=== PATIENT | male | born 1965 | race Caucasian/White ===

== ENCOUNTER 2016-06-13 10:27 | Inpatient (IN) | payer BC, MEDICAID ==
[~2016-06-13] VITALS: Ht 160 cm; Wt 74.8 kg
[2016-06-13] MEDS ORDERED: KETOROLAC TROMETHAMINE INJ 30 MG/ML VIAL IM ONE (11:00)
[2016-06-13] MEDS ORDERED: KETOROLAC TROMETHAMINE INJ 30 MG/ML VIAL ONE (11:01)
--- NOTE | 2016-06-13 11:05 | NUR ---
PT BIB SELF C/O LLQ ABD PAIN X1 WK WITH N/V EARLIER IN THE WEEK BUT NOW DENIES. RESP EVEN UNLABORED. SKIN WARM NONDIAPHORETIC. REPORTS CONSTIPATION AND FEELING OF BLOATING/GAS. AMBULATORY WITH STEADY GAIT. AFEBRILE. IN ER BED 10.
[2016-06-13 11:37] LABS: BASOPHILS # (AUTO) 0.6 /CMM (0.0-0.2); BASOPHILS % (AUTO) 3.7 % (0.0-2.0); EOSINOPHILS # (AUTO) 0.2 /CMM (0.0-0.7); EOSINOPHILS % (AUTO) 1.1 % (0.0-6.0); HEMATOCRIT 45 % (39-51); HEMOGLOBIN 15.3 g/dL (13.5-17.5); LYMPHOCYTES # (AUTO) 1.1 /CMM (0.8-4.8); LYMPHOCYTES % (AUTO) 6.6 % (20.0-44.0); MEAN CORPUSCULAR HEMOGLOBIN 32 PG (26.0-33.0); MEAN CORPUSCULAR HGB CONC 34 g/dl (31.0-36.0); MEAN CORPUSCULAR VOLUME 95 fL (80-96); MONOCYTES # (AUTO) 1.3 /CMM (0.1-1.30); MONOCYTES % (AUTO) 7.2 % (2.0-12.0); NEUTROPHILS # (AUTO) 14.2 /CMM (1.8-8.9); NEUTROPHILS % (AUTO) 81.4 % (43.0-81.0); PLATELET COUNT (AUTO) 256 /CMM (150-450); RDW COEFFICIENT OF VARIATION 12.6 (11.5-15.0); WHITE BLOOD COUNT (AUTO) 17.4 K/uL (4.3-11.0)
[2016-06-13 11:38] LABS: APPEARANCE,URINE Clear (CLEAR); BILIRUBIN,URINE Negative (NEGATIVE); BLOOD, URINE Trace-intact Ery/uL (NEGATIVE); COLOR,URINE Yellow (YELLOW); KETONES,URINE Trace (NEGATIVE); LEUKOCYTE ESTERASE ,URINE Negative (NEGATIVE); NITRITE, URINE Negative (NEGATIVE); PH,URINE 8.5 (5.0-8.0); PROTEIN,URINE 100 mg/dl (NEGATIVE); UGLUCOSE Negative (NEGATIVE)
[2016-06-13 11:51] LABS: CALCIUM, SERUM 8.6 mg/dL (8.5-10.1); POTASSIUM 3.9 mmol/L (3.5-5.1)
[2016-06-13 11:57] LABS: BILIRUBIN,DIRECT 0.2 mg/dL (0.0-0.2); BILIRUBIN,TOTAL 0.9 mg/dL (0.2-1.0); TOTAL PROTEIN, SERUM 7.2 g/dL (6.4-8.2)
[2016-06-13 12:00] LABS: ADD URINE CULTURE NO; BACTERIA,URINE Rare /HPF (None Seen); RBC,URINE 0-2 /HPF (0-2); SQUAMOUS EPITHELIAL CELL,UR Rare /HPF (None Seen); WBC,URINE 0-2 /HPF (0-3)
[2016-06-13] MEDS ORDERED: HYDROMORPHONE 1 MG/1 ML DISP.SYRIN ONE (12:28)
[2016-06-13] MEDS ORDERED: ONDANSETRON HCL/PF 4 MG/2 ML VIAL ONE (12:29)
[2016-06-13] MEDS ORDERED: IV SET PRIMARY PUMP SET 1 EA INFUS.SET MC ONE ×2 (12:29→16:28)
[2016-06-13] MEDS ORDERED: IV NS 0.9% 1,000 ML ONE (12:29)
[2016-06-13] MEDS ORDERED: METRONIDAZOLE 500MG/ NS 100ML 100 ML IV ONE (12:29)
[2016-06-13] MEDS ORDERED: IV SET PRIMARY 1 EA INFUS.SET MC ONE (12:29)
[2016-06-13] MEDS ORDERED: ONDANSETRON HCL/PF 4 MG/2 ML VIAL IVP ONE (12:30)
[2016-06-13] MEDS ORDERED: PIPERACILLIN /TAZOBACTAM 3.375 G in IV D5W 50 ML IV ONE (12:30)
[2016-06-13] MEDS ORDERED: FLAGYL/NS RTU 500 MG/100 ML PIGGYBACK IV ONE (12:30)
[2016-06-13] MEDS ORDERED: HYDROMORPHONE INJ 2 MG/ML DISP.SYRIN IV ONE (12:30)
[2016-06-13] MEDS ORDERED: IV NS 0.9% 1,000 ML BAG IV ONE (12:30)
--- NOTE | 2016-06-13 12:31 | NUR ---
PT RESTING COMFORTABLY IN BED, NAD NOTED. REPORTS ADEQUATE PAIN RELIEF WITH TORADOL.
--- NOTE | 2016-06-13 12:35 | NUR ---
CALLED (SURGEON MOLD HOISTER), TRANSFERRED CALL TO
--- NOTE | 2016-06-13 12:38 | NUR ---
[facility] PAGED [phone] JOYNER EXPRESSIVE MUSIC THERAPIST
--- NOTE | 2016-06-13 12:42 | NUR ---
CALLED NURSING SUP. FOR MS BED
--- NOTE | 2016-06-13 12:50 | NUR ---
IV ACCESS ESTABLISHED LFA 20G AND PINK TOP TUBE DRAWN
[2016-06-13 13:16] LABS: BASOPHILS % (MANUAL) 0 % (0.0-2.0); EOSINOPHILS % (MANUAL) 2 % (0-4); LYMPHOCYTES % (MANUAL) 8 % (16-48); MONOCYTES % (MANUAL) 8 % (0-11.0); NEUTROPHILS % (MANUAL) 82 (42-76); PLATELET ESTIMATE ADEQUATE
[2016-06-13] MEDS ORDERED: ZOLPIDEM TARTRATE 5 MG TABLET PO PRN (13:30)
[2016-06-13] MEDS ORDERED: MAG HYDROX/AL HYDROX/SIMETH 30 ML UDC PO PRN (13:30)
[2016-06-13] MEDS ORDERED: HYDROCODONE/APAP 5/325MG 1 EACH TABLET PO PRN (13:30)
[2016-06-13] MEDS ORDERED: ONDANSETRON HCL/PF 4 MG/2 ML VIAL IVP PRN (13:30)
[2016-06-13] MEDS ORDERED: MAGNESIUM HYDROXIDE 30 ML UDC PO PRN (13:30)
[2016-06-13] MEDS ORDERED: Z GUARD REMEDY 2 OZ OINT TP PRN (13:30)
--- NOTE | 2016-06-13 13:51 | NUR ---
REPORT GIVEN TO ERIKA BOOGIE FOR ADMISSION
[2016-06-13 14:06] LABS: INR 0.94 (0.87-1.13); PROTHROMBIN TIME 9.8 SECS (9.5-12.7)
--- NOTE | 2016-06-13 14:09 | NUR ---
PT TRANSPORTED TO RM 312 IN STABLE CONDITION VIA WHEELCHAIR, DENIES PAIN, NAD NOTED.
[2016-06-13 14:50] VITALS: BP 105/54
--- NOTE | 2016-06-13 15:00 | NUR ---
MS RN NOTES RECEIVED PATIENT FORM ER VIA WHEELCHAIR, AOX3, WITH ADM DX OF PERFORATED APPENDIX. MADE HIM COMFORTABLE IN BED, WITH LFA #[address] JOYNER MADE AWARE FOR PENDING ADMISSION ORDERS. BELONGS AT BEDSIDE. CALL LIGHT WITHIN REACH, WILL CONTINUE TO MONITOR.
[2016-06-13 16:00] VITALS: BP 105/54
--- NOTE | 2016-06-13 16:26 | NUR ---
MS RN NOTES DR. MONET CALLED AND RECEIVED NEW ORDERS. TO START CLEAR DIET THEN NPO POST MIDNIGHT. PATIENT FOR LAP APPENDECTOMY AND POSSIBLE OPEN TOMORROW MORNING. ORDERS CARRIED OUT.
[2016-06-13] MEDS: IV NS 0.9% 1,000 ML IV PRN (16:38)
[2016-06-13] MEDS ORDERED: SECONDARY IV SET 1 EA INFUS.SET MC ONE (17:31)
[2016-06-13] MEDS: PIPERACILLIN /TAZOBACTAM 3.375 G in IV D5W 50 ML IV SCH ×2 (17:42→23:16)
--- NOTE | 2016-06-13 18:00 | NUR ---
MS MEANS NOTES CONSENT OBTAINED AND SIGNED.
--- NOTE | 2016-06-13 19:37 | NUR ---
MS RN NOTES ENDORSED TO INCOMING SHIFT FOR CONTINUITY OF CARE.
--- NOTE | 2016-06-13 19:38 | NUR ---
RN NOTES RECEIVED PT AWAKE IN BED, ALERT AND ORIENTED X4, NO SOB, NOT IN DISTRESS, TOLERATING ROOM AIR. DENIES ANY PAIN, NAUSEA AND VOMITING. PT APPEARS COMFORTABLE IN BED WITH FAMILY AT BEDSIDE. IV ACCESS ON LEFT FOREARM PATENT AND INTACT WITH ONGOING IVF INFUSING WELL. PT IS DRINKING WATER AND JUICE WHILE ON CLEAR LIQUID DIET, AND WILL BE NPO AFTER MIDNIGHT PT AWARE. KEPT COMFORTABLE AND ATTENDED. WILL CONTINUE TO MONITOR PT.
[2016-06-13 20:00] VITALS: BP 110/67
[2016-06-13 22:00] VITALS: BP 110/67
[2016-06-13] MEDS: ACETAMINOPHEN 325 MG TABLET PO PRN (22:02)
--- NOTE | 2016-06-13 22:02 | NUR ---
RN NOTES PT FEELS WARM, TEMP CHECKED 100.2, TYLENOL 650 MG TAB GIVEN PO AND TOLERATED WELL. WILL CONTINUE TO MONITOR PT.
--- NOTE | 2016-06-13 23:15 | NUR ---
RN NOTES TEMP RECHECKED, 98.7. PT DENIES ANY PAIN AND DISCOMFORT. WILL CONTINUE TO MONITOR PT.
--- NOTE | 2016-06-14 | NUR ---
RN NOTES PLACED PT ON NPO. WILL CONTINUE TO MONITOR.
[2016-06-14] MEDS: IV NS 0.9% 1,000 ML IV PRN (01:38)
[2016-06-14] MEDS: HYDROMORPHONE INJ 2 MG/ML DISP.SYRIN IV PRN ×2 (01:39→06:06)
--- NOTE | 2016-06-14 01:39 | NUR ---
RN NOTES PT COMPLAINS OF PAIN 10/29, DILAUDID 1MG GIVEN IV. WILL CONTINUE TO MONITOR PT.
[2016-06-14] MEDS: PIPERACILLIN /TAZOBACTAM 3.375 G in IV D5W 50 ML IV SCH ×3 (05:44→17:32)
--- NOTE | 2016-06-14 06:06 | NUR ---
RN NOTES PT COMPLAINS OF ABDOMINAL PAIN 10/29, DILAUDID 1 MG GIVEN IV. WILL CONTINUE TO MONITOR PT.
[2016-06-14 06:50] LABS: EOSINOPHILS # (AUTO) 0.3 /CMM (0.0-0.7); EOSINOPHILS % (AUTO) 1.7 % (0.0-6.0); HEMATOCRIT 37 % (39-51); HEMOGLOBIN 12.6 g/dL (13.5-17.5); LYMPHOCYTES # (AUTO) 1.2 /CMM (0.8-4.8); LYMPHOCYTES % (AUTO) 7.6 % (20.0-44.0); MEAN CORPUSCULAR HEMOGLOBIN 32 PG (26.0-33.0); MEAN CORPUSCULAR HGB CONC 34 g/dl (31.0-36.0); MEAN CORPUSCULAR VOLUME 96 fL (80-96); MONOCYTES # (AUTO) 1.3 /CMM (0.1-1.30); MONOCYTES % (AUTO) 7.7 % (2.0-12.0); NEUTROPHILS # (AUTO) 13.7 /CMM (1.8-8.9); PLATELET COUNT (AUTO) 229 /CMM (150-450); RDW COEFFICIENT OF VARIATION 13.5 (11.5-15.0); RED BLOOD CELL COUNT(AUTO) 3.89 MIL/uL (4.5-6.0); WHITE BLOOD COUNT (AUTO) 16.5 K/uL (4.3-11.0)
--- NOTE | 2016-06-14 07:00 | NUR ---
RN NOTES PT PICKED UP BY OR STAFF, AWAKE, PAIN AT TOLERABLE LEVEL.
--- NOTE | 2016-06-14 07:10 | NUR ---
RN NOTES ENDORSED PT TO MORNING RN.
[2016-06-14] MEDS ORDERED: ROCURONIUM BROMIDE 50 MG/5 ML ONE ×2 (07:13→08:05)
[2016-06-14] MEDS ORDERED: MIDAZOLAM HCL 2 MG/2ML VIAL ONE (07:13)
[2016-06-14] MEDS ORDERED: FENTANYL PF 100MCG/2ML AMPUL ONE (07:13)
[2016-06-14] MEDS ORDERED: SUCCINYLCHOLINE CHLORIDE 20 MG/ML VIAL ONE (07:13)
[2016-06-14] MEDS ORDERED: HYDROMORPHONE INJ 2 MG/ML DISP.SYRIN ONE ×2 (07:14→08:49)
[2016-06-14] MEDS ORDERED: BUPIVACAINE 0.25% 75 MG/30 ML VIAL ONE (07:21)
[2016-06-14 07:25] LABS: ALBUMIN 2.2 g/dL (3.4-5.0); BILIRUBIN,TOTAL 0.8 mg/dL (0.2-1.0); POTASSIUM 4.1 mmol/L (3.5-5.1); TOTAL PROTEIN, SERUM 5.7 g/dL (6.4-8.2)
[2016-06-14] MEDS: PANTOPRAZOLE 40 MG TABLET.DR PO SCH (07:30)
[2016-06-14] MEDS ORDERED: BUPIVACAINE MPF W/EPI 0.25% 30 ML VIAL ONE (07:43)
[2016-06-14] MEDS ORDERED: IV NS 0.9% 1,000 ML IV PRN (08:35)
[2016-06-14] MEDS ORDERED: HYDROCODONE/APAP 5/325MG 1 EACH TABLET PO PRN (09:30)
[2016-06-14] MEDS ORDERED: MORPHINE SULFATE INJ 2 MG/ML DISP.SYRIN IV PRN (09:30)
[2016-06-14] MEDS ORDERED: MORPHINE SULFATE INJ 4 MG/ML DISP.SYRIN IV PRN (09:30)
[2016-06-14 10:00] VITALS: BP 98/57
--- NOTE | 2016-06-14 10:00 | NUR ---
RETURNED AFTER LAP. APPENDECTOMY. PT. AWAKE, ALERT AND ORIENTED X4. NO SOB ON O2@2L VIA NC. JR IN PLACE. DRESSING DRY AND INTACT. VS STABLE. EXPLAINED HOW TO USE AN INCENTIVE SPIROMETER. WILL CHECK VS Q15MIN. SIPS OF WATER. NO N/V. SIDE RAILS UP. CALL LIGHT WITHIN REACH. MONITOR CLOSELY.
[2016-06-14] MEDS: IV D5/0.45 NACL 1,000 ML IV PRN (11:42)
--- NOTE | 2016-06-14 12:30 | NUR ---
PT. WENT TO THE RESTROOM AND URINATED. AMBULATED ON HALLWAY. PT. HAD FULL LIQUID DIET. NO N/V. WILL CHANGED TO REGULAR DIET AT DINNER.
[2016-06-14 16:00] VITALS: BP_SYST 114; BP_SYST 96; BP_DIAS 57; BP_DIAS 69
[2016-06-14 17:08] VITALS: BP 96/57
--- NOTE | 2016-06-14 19:00 | NUR ---
CLOSING SHIFT PT. AWAKE, ALERT AND ORIENTED X4. TOLERATED PAIN. JR IN PLACE. DRESSING DRY AND INTACT. AMBULATED ON HALLWAY WITHOUT ANY DISTRESS. FAMILY AT THE BEDSIDE. CALL LIGHT WITHIN REACH. SIDE RAILS UP. MONITOR CLOSELY.
--- NOTE | 2016-06-14 19:30 | NUR ---
MS RN NOTE PATIENT AWAKE AND ALERT IN BED. NO RESPIRATORY DISTRESS AT THIS TIME. PATIENT STATES THAT HE IS HAVING 5/10 PAIN TO ABDOMEN AT THIS TIME, BUT DOES NOT WANT ANY MEDICATION. JR DRAIN IN PLACE, WITH 20 ML SANGUINOUS DRAINAGE NOTED. ENCOURAGED USE OF INCENTIVE SPIROMETER. IV INTACT WITH NO REDNESS NOTED. FLUIDS RUNNING ORDERED. BED LOCKED AND IN LOWEST POSITION. SIDE RAILS UP, CALL LIGHT WITHIN REACH. WILL CONTINUE TO MONITOR.
[2016-06-14 20:00] VITALS: BP 98/54
[2016-06-14 22:00] VITALS: BP 98/54
[2016-06-15] MEDS: PIPERACILLIN /TAZOBACTAM 3.375 G in IV D5W 50 ML IV SCH ×4 (00:43→17:56)
[2016-06-15] MEDS: IV D5/0.45 NACL 1,000 ML IV PRN (05:33)
--- NOTE | 2016-06-15 06:34 | NUR ---
MS RN NOTE PATIENT STABLE. IV FLUIDS RUNNING ORDERED. JR DRAIN IN PLACE, WITH 30ML SANGUINOUS DRAINAGE NOTED. ALL NEEDS MET AND ATTENDED TO. WILL ENDORSE TO DAY SHIFT FOR JEREMY.
[2016-06-15 07:01] LABS: CALCIUM, SERUM 8.3 mg/dL (8.5-10.1); POTASSIUM 4.2 mmol/L (3.5-5.1)
--- NOTE | 2016-06-15 07:20 | NUR ---
MS RN INITIAL NOTES RECEIVED PATIENT IN BED AWAKE, A/O X4. BREATHING EVEN AND NON LABORED, NO SOB NOTED. LOWER ABDOMEN SURGICAL INCISION DRESSING INTACT, JR IN PLACE WITH SEROSANGUINEOUS FLUID DRAINAGE. NO C/O PAIN AT THIS TIME. IVF D5 NS INFUSING AT 75ML/HR. WILL CONT TO MONITOR.
[2016-06-15 07:34] LABS: BASOPHILS % (AUTO) 0.2 % (0.0-2.0); EOSINOPHILS # (AUTO) 0.1 /CMM (0.0-0.7); EOSINOPHILS % (AUTO) 0.4 % (0.0-6.0); HEMATOCRIT 40 % (39-51); HEMOGLOBIN 13.4 g/dL (13.5-17.5); LYMPHOCYTES # (AUTO) 1.4 /CMM (0.8-4.8); LYMPHOCYTES % (AUTO) 8.8 % (20.0-44.0); MEAN CORPUSCULAR HEMOGLOBIN 32 PG (26.0-33.0); MEAN CORPUSCULAR HGB CONC 34 g/dl (31.0-36.0); MEAN CORPUSCULAR VOLUME 96 fL (80-96); MONOCYTES # (AUTO) 0.8 /CMM (0.1-1.30); MONOCYTES % (AUTO) 4.8 % (2.0-12.0); NEUTROPHILS # (AUTO) 13.5 /CMM (1.8-8.9); NEUTROPHILS % (AUTO) 85.8 % (43.0-81.0); PLATELET COUNT (AUTO) 293 /CMM (150-450); RDW COEFFICIENT OF VARIATION 12.9 (11.5-15.0); RED BLOOD CELL COUNT(AUTO) 4.16 MIL/uL (4.5-6.0); WHITE BLOOD COUNT (AUTO) 15.7 K/uL (4.3-11.0)
[2016-06-15 08:00] VITALS: BP_SYST 100; BP_SYST 93; BP_DIAS 52; BP_DIAS 62
[2016-06-15] MEDS: ACETAMINOPHEN 325 MG TABLET PO PRN ×3 (08:11→22:36)
[2016-06-15] MEDS: PANTOPRAZOLE 40 MG TABLET.DR PO SCH (08:11)
--- NOTE | 2016-06-15 08:30 | NUR ---
PATIENT IS SEEN BY DR. JOYNER TODAY. LABS IN AM.
--- NOTE | 2016-06-15 10:35 | NUR ---
PATIENT IS SEEN BY DR. MONET/SURGEON TODAY, PER MD [facility].
[2016-06-15 16:00] VITALS: BP 104/61
--- NOTE | 2016-06-15 17:00 | NUR ---
PATIENT WITH EPISODE DIARRHEA AND LOOSE STOOL X4. NOTIFIED DR. JOYNER ORDERED STOOL C-DIFF AND STOOL CULTURE. PATIENT MADE AWARE, VERBALIZED UNDERSTANDING.
--- NOTE | 2016-06-15 17:11 | NUR ---
PRELIM RESULT WOUND CULTURE E.COLI ESBL WOUND, PLACE PATIENT ON CONTACT ISOLATION. CHARGE NURSE MADE AWARE.
--- NOTE | 2016-06-15 17:50 | NUR ---
PATIENT FEELS WARM, TEMP 99.5, NO CHILLS, NO C/O PAIN AT THIS TIME.
--- NOTE | 2016-06-15 18:02 | NUR ---
STOOL SAMPLE FOR STOOL C-DIFF STOOL CULTURE SEND TO LAB.
--- NOTE | 2016-06-15 18:54 | NUR ---
MS RN CLOSING NOTES PATIENT IN BED, A/O X4. NOT IN DISTRESS. IV IN LFA G20 PATENT AND INTACT, ON D5 1/2 NS INFUSING AT 75ML/HR, TOLERATING WELL. ABDOMINAL SURGICAL INCISION DRESSING INTACT. JR IN PLACE WITH SANGUINEOUS FLUID DRAINAGE. PATIENT C/O ABDOMINAL PAIN INCISION SITE 05/29, GIVEN TYLENOL 650MG PO PRN, WILL RE ASSESS. PLACE CALL LIGHT WITHIN REACH. WILL ENDORSE TO TRUCKMAN RN FOR CONTINUITY OF CARE.
--- NOTE | 2016-06-15 18:59 | NUR ---
ABDOMINAL SURGICAL INCISION SITE NOTED LEAKING, APPLIED ABD PAD ON TOP OF DRESSING(POST LAP APPENDECTOMY (06/14/16) CALLED DR. MONET/SURGEON AND LEFT MESSAGE TO HIS VOICE MAIL. CHARGE NURSE MADE AWARE.
--- NOTE | 2016-06-15 19:30 | NUR ---
MS RN NOTE RECEIVED PATIENT AWAKE AND ALERT IN BED. ABLE TO MAKE NEEDS KNOWN. IV SITE INTACT, WITH FLUIDS RUNNING ORDERED. JR DRAIN IN TACT. DRESSING CHANGER, PER DR. MONET'S ORDER. PATIENT DENIES ANY DISTRESS AT THIS TIME. BED LOCKED IN LOWEST POSITION. SIDE RAILS UP, CALL LIGHT WITHIN REACH. WILL CONTINUE TO MONITOR.
--- NOTE | 2016-06-15 19:41 | NUR ---
RECEIVED PHONE CALL FROM DR. MONET/SURGEON, ORDERED TO REMOVED DRESSING OVER DRAIN SITE AND APPLY NEW DRESSING AND CHANGE NECESSARY NOTED AND ACKNOWLEDGED. ENDORSED TO SCHOOL ATHLETIC DIRECTOR RN.
[2016-06-15 20:00] VITALS: BP 103/60
[2016-06-15 21:12] VITALS: BP 103/60
[2016-06-16] MEDS: PIPERACILLIN /TAZOBACTAM 3.375 G in IV D5W 50 ML IV SCH ×5 (00:56→22:53)
[2016-06-16] MEDS: ACETAMINOPHEN 325 MG TABLET PO PRN ×3 (06:14→22:53)
--- NOTE | 2016-06-16 06:55 | NUR ---
MS RN NOTE PATIENT STABLE. CHANGED DRESSING TO ABDOMEN ORDERED. JR DRAIN INTACT. DVYT PUMPS ON. WILL ENDORSE TO DAY SHIFT FOR JEREMY.
[2016-06-16 07:03] LABS: BASOPHILS % (AUTO) 0.2 % (0.0-2.0); CALCIUM, SERUM 7.8 mg/dL (8.5-10.1); CREATININE 0.9 mg/dL (0.6-1.3); EOSINOPHILS # (AUTO) 0.3 /CMM (0.0-0.7); HEMATOCRIT 38 % (39-51); HEMOGLOBIN 12.3 g/dL (13.5-17.5); LYMPHOCYTES # (AUTO) 1.2 /CMM (0.8-4.8); MEAN CORPUSCULAR HEMOGLOBIN 31 PG (26.0-33.0); MEAN CORPUSCULAR HGB CONC 33 g/dl (31.0-36.0); MEAN CORPUSCULAR VOLUME 96 fL (80-96); MONOCYTES % (AUTO) 7.8 % (2.0-12.0); NEUTROPHILS # (AUTO) 10.4 /CMM (1.8-8.9); PLATELET COUNT (AUTO) 319 /CMM (150-450); POTASSIUM 3.6 mmol/L (3.5-5.1); RDW COEFFICIENT OF VARIATION 13.3 (11.5-15.0); RED BLOOD CELL COUNT(AUTO) 3.95 MIL/uL (4.5-6.0); WHITE BLOOD COUNT (AUTO) 12.9 K/uL (4.3-11.0)
--- NOTE | 2016-06-16 07:20 | NUR ---
MS RN INITIAL NOTES REPORT RECEIVED AT THE BEDSIDE. PATIENT IS SLEEPING. NO SOB OR DISTRESS NOTED AT THIS TIME. PATIENT DOES NOT APPEAR TO BE IN PAIN, NO FACIAL GRIMACE NOTED. BED IN A LOW POSITION, CALL LIGHT WITHIN PATIENT REACH. WILL CONTINUE TO MONITOR.
[2016-06-16 08:00] VITALS: BP 110/68
--- NOTE | 2016-06-16 08:04 | NUR ---
MS RN NOTES PATIENT IS ASKING TO BE TAKEN OFF THE IV FLUIDS FOR A LITTLE WHILE. WILL RESTART LATER.
[2016-06-16] MEDS: PANTOPRAZOLE 40 MG TABLET.DR PO SCH (08:05)
[2016-06-16 16:00] VITALS: BP 104/60
--- NOTE | 2016-06-16 17:39 | NUR ---
MS RN NOTES EMPTIED PATIENT'S JR DRAIN AT AROUND 1700 AND REAPPLIED SUCTION. WAS ALERTED AROUND 1715 MY THE PATIENT THAT THE BALLOON WAS ONCE AGAIN FILLED WITH AIR AND NO LONGER COMPRESSED. RECOMPRESSED BALLOON AND AGAIN WAS CALLED BY THE PATIENT AROUND 1730 THAT THE BALLOON WAS NO LONGER COMPRESSED. CALLED DR MONET TO INFORM HIM THAT THE DRAIN WAS NO LONGER HOLDING SUCTION. STATES HE WILL REMOVE THE DRAIN TOMORROW AND THAT THE DRAIN WILL STILL ACT BY GRAVITY; NO IMMEDIATE INTERVENTION NEEDED.
--- NOTE | 2016-06-16 19:04 | NUR ---
MS RN CLOSING NOTES NO SIGNIFICANT CHANGES IN PATIENT CONDITION THROUGHOUT THE SHIFT. NO SOB OR DISTRESS NOTED AT THIS TIME. PATIENT REPORTS TOLERABLE PAIN. BED IN A LOW POSITION, CALL LIGHT WITHIN PATIENT REACH. WILL ENDORSE FOR JEREMY.
[2016-06-16 20:50] VITALS: BP 117/63
[2016-06-16 22:00] VITALS: BP 117/63
[2016-06-17] MEDS: PIPERACILLIN /TAZOBACTAM 3.375 G in IV D5W 50 ML IV SCH ×3 (06:24→17:47)
[2016-06-17] MEDS: ACETAMINOPHEN 325 MG TABLET PO PRN ×2 (06:25→16:25)
[2016-06-17] MEDS: PANTOPRAZOLE 40 MG TABLET.DR PO SCH (06:25)
[2016-06-17 08:00] VITALS: BP 114/68
--- NOTE | 2016-06-17 08:20 | NUR ---
MS RN RECEIVED ON BED, AWAKE,ALERT,ORIENTED X4,NOT IN ANY FORM OF DISTRESS, RESPIRATIONS EVEN AND UNLABORED,NO SOB NOTED, S/P LAP AP, W/ JR DRAIN NO DRAIN AT THIS TIME, PATIENT REFUSED TO FIX DRAIN, DRAIN FULL OF AIR, BALOON FULLY INFLATE, PATIENT REFUSED TO FIX/RESET IT.DENIES PAIN AT THIS TIME,ALL NEEDS ATTENDED.
--- NOTE | 2016-06-17 09:50 | NUR ---
MS KEAGAN BREAKFAST SERVED,NO DUE MEDS AT THIS TIME. PATIENT DENIES PAIN AT THIS TIME.
--- NOTE | 2016-06-17 15:34 | NUR ---
MS RBN WAS SEEN BY , JR DRAIN REMOVED,NO DRAINAGE NOTED.
[2016-06-17 16:00] VITALS: BP 119/69
--- NOTE | 2016-06-17 18:07 | NUR ---
MS RN PATIENT TO BE DISCHARGE TODAY PER DR. GRACIA,ALL NEEDS ATTENDED.
--- NOTE | 2016-06-17 18:55 | NUR ---
ms rn went home w/ prescription, dr. flynn will be the one to change dressing at clinic. patient refused to take pictures at the surgical wounds, no distress noted.
== END 2016-06-17 18:58 | disposition home or self-care (01) | DRG 710 ==
LOC: ER 10:34 → MED 14:11
PROVIDERS: ADMIT Family Medicine; ATTEND Family Medicine
PROC: 0DTJ4ZZ Resection of Appendix, Percutaneous Endoscopic Approach (ICD-10-PCS; principal; 2016-06-14 07:30)
DX: A41.9 Sepsis, unspecified organism (principal); K35.3 Acute appendicitis with localized peritonitis; D72.825 Bandemia; K56.41 Fecal impaction
CPT/HCPCS: 36415; 71010-TC; 75989-TC; 80048-TC; 80053-TC; 80076-TC; 81000-TC; 83690-TC; 83735-TC; 84100-TC; 85025-TC; 85730-TC; 87045-TC; 87070-TC; 87075-TC; 87081-TC; 87186-TC; 88304-TC; 88305-TC; A6253; A6403; J0330; J1100; J1170; J1885; J2250; J2405; J2543; J2704; J2710; J3010; J3490; J7030; J7060; Z7610

== ENCOUNTER 2016-11-28 12:29 | Emergency (ER) | payer BC ==
[~2016-11-28] VITALS: Ht 160 cm; Wt 72.6 kg
[2016-11-28 12:44] VITALS: BP 101/57
== END 2016-11-28 13:57 | disposition home or self-care (01) ==
LOC: ER 12:30
DX: J20.8 Acute bronchitis due to other specified organisms (principal)
CPT/HCPCS: 71010-TC; A4606; Z7610

== ENCOUNTER 2017-04-29 10:57 | Emergency (ER) | payer BC, MEDICAID ==
[~2017-04-29] VITALS: Ht 162.6 cm; Wt 74.8 kg
[2017-04-29 10:57] VITALS: BP 116/60
== END 2017-04-29 12:44 | disposition home or self-care (01) ==
LOC: ER 10:59
DX: J20.8 Acute bronchitis due to other specified organisms (principal); Z90.89 Acquired absence of other organs
CPT/HCPCS: 71046; 99284; A4606; Z7610

== ENCOUNTER 2018-06-19 16:32 | Emergency (ER) | payer BC, MEDICAID ==
[~2018-06-19] VITALS: Ht 160 cm; Wt 74.8 kg
--- NOTE | 2018-06-19 17:10 | NUR ---
PATIENT ARRIVED AT UNIT AMBULATORY. C/O WORSENING COUGH X 1 1/2 WEEK. NO ACUTE DISTRESS AT THIS TIME. NO C/O PAIN
--- NOTE | 2018-06-19 17:20 | NUR ---
SEEN BY MD AT BEDSIDE
[2018-06-19] MEDS ORDERED: predniSONE 20 MG TABLET PO ONE (17:30)
[2018-06-19] MEDS ORDERED: IPRATROPIUM NEB FS 0.5 MG/2.5 ML AMPUL.NEB NEB ONE (17:30)
[2018-06-19] MEDS ORDERED: ALBUTEROL FS 2.5 MG/3 ML VIAL.NEB NEB ONE (17:30)
[2018-06-19] MEDS ORDERED: predniSONE 20 MG TABLET ONE (17:41)
--- NOTE | 2018-06-19 17:49 | NUR ---
RT WAS CALLED FOR A BREATHING TX
[2018-06-19] MEDS ORDERED: IPRATROPIUM NEB FS 0.5 MG/2.5 ML AMPUL.NEB ONE ×2 (17:54)
[2018-06-19] MEDS ORDERED: ALBUTEROL FS 2.5 MG/3 ML VIAL.NEB ONE (17:54)
[2018-06-19 18:30] VITALS: BP 122/70
== END 2018-06-19 18:48 | disposition home or self-care (01) ==
LOC: ER 16:39
DX: J20.9 Acute bronchitis, unspecified (principal); Z90.89 Acquired absence of other organs
CPT/HCPCS: 71045; 94640 ×2; 99284; J7512

== ENCOUNTER 2018-10-19 14:01 | Emergency (ER) | payer BC, OTHER ==
[~2018-10-19] VITALS: Ht 160 cm; Wt 74.8 kg
[2018-10-19 14:51] VITALS: BP 149/49
[2018-10-19] MEDS ORDERED: ACETAMINOPHEN ES 500 MG TABLET ONE (15:06)
[2018-10-19] MEDS ORDERED: ACETAMINOPHEN ES 500 MG TABLET PO ONE (15:30)
== END 2018-10-19 16:16 | disposition home or self-care (01) ==
LOC: ER 14:01
DX: R50.9 Fever, unspecified (principal); R05 Cough; R07.89 Other chest pain; Z90.89 Acquired absence of other organs; Z60.2 Problems related to living alone
CPT/HCPCS: 71045-TC

== ENCOUNTER 2019-03-10 21:43 | Emergency (ER) | payer MEDICAID, OTHER ==
[~2019-03-10] VITALS: Ht 160 cm; Wt 77.1 kg
--- NOTE | 2019-03-10 21:50 | NUR ---
PT BIBSELF C/O MIDSTERNAL CHEST PAIN X4HR BASE MANAGER. PT DESCRIBES PRESSURE, RADIATES TO R ARM. PT DENIES SOB, NAUSEA, VOMITTING, DIZZINESS. PT AAOX4. RESPIRATIONS EVEN AND UNLABORED. SKIN WARM AND INTACT. AMBULATORY WITH STEADY GAIT. NO ACUTE DISTRESS NOTED AT THIS TIME. PT PLACED ON CONTINUOUS CREDIT HISTORIAN AND PULSE OX, WILL CONTINUE TO MONITOR.
--- NOTE | 2019-03-10 22:03 | NUR ---
IV INITATED RAC 18G. LABS DRAWN FROM SITE AND SENT TO LAB. IV INTACT AND PATENT, PLACED ON SALINE LOCK.
[2019-03-10 22:15] LABS: BASOPHILS # (AUTO) 0.2 /CMM (0.0-0.2); EOSINOPHILS % (AUTO) 4.9 % (0.0-6.0); HEMATOCRIT 48 % (39-51); HEMOGLOBIN 16.1 g/dL (13.5-17.5); LYMPHOCYTES # (AUTO) 1.5 /CMM (0.8-4.8); LYMPHOCYTES % (AUTO) 25.3 % (20.0-44.0); MEAN CORPUSCULAR HGB CONC 33 g/dl (31.0-36.0); MEAN CORPUSCULAR VOLUME 98 fL (80-96); MONOCYTES # (AUTO) 0.5 /CMM (0.1-1.30); NEUTROPHILS # (AUTO) 3.4 /CMM (1.8-8.9); NEUTROPHILS % (AUTO) 56.8 % (43.0-81.0); PLATELET COUNT (AUTO) 248 /CMM (150-450); RED BLOOD CELL COUNT(AUTO) 4.92 MIL/uL (4.5-6.0)
[2019-03-10 22:25] LABS: CALCIUM, SERUM 8.8 mg/dL (8.5-10.1); CARBON DIOXIDE 29 mmol/L (21-32); CHLORIDE 104 mmol/L (98-107); CREATININE 1.3 mg/dL (0.6-1.3); GLUCOSE 101 mg/dL (74-106); POTASSIUM 4.3 mmol/L (3.5-5.1); SODIUM SERUM 141 mmol/L (136-145); UREA NITROGEN, BLOOD 25 mg/dL (7-18)
[2019-03-10] MEDS ORDERED: NITROGLYCERIN PACKET 1 GM PACKET TD ONE (22:30)
[2019-03-10] MEDS ORDERED: ACETAMINOPHEN ES 500 MG TABLET PO ONE (22:30)
[2019-03-10] MEDS ORDERED: NITROGLYCERIN 0.4 MG/TAB BOTTLE SL ONE (22:30)
[2019-03-10] MEDS ORDERED: ASPIRIN 81 MG TAB.CHEW PO ONE (22:30)
[2019-03-10] MEDS ORDERED: HYDROCODONE/APAP 5/325MG 1 EACH TABLET PO ONE (22:30)
[2019-03-10] MEDS ORDERED: NITROGLYCERIN 0.4 MG/TAB BOTTLE ONE (22:35)
[2019-03-10] MEDS ORDERED: ACETAMINOPHEN ES 500 MG TABLET ONE (22:35)
[2019-03-10] MEDS ORDERED: HYDROCODONE/APAP 5/325MG 1 EACH TABLET ONE (22:35)
[2019-03-10] MEDS ORDERED: NITROGLYCERIN PACKET 1 GM PACKET ONE (22:36)
[2019-03-10] MEDS ORDERED: ASPIRIN 81 MG TAB.CHEW ONE (22:36)
[2019-03-10 22:39] LABS: ALANINE AMINOTRANSFERASE 43 U/L (12-78); ALBUMIN 3.5 g/dL (3.4-5.0); ALKALINE PHOSPHATASE 47 U/L (46-116); ASPARTATE AMINOTRANSFERASE 31 U/L (15-37); B-TYPE NATRIURETIC PEPTIDE 8 PG/ML (0-125); BILIRUBIN,DIRECT 0.1 mg/dL (0.0-0.2); BILIRUBIN,TOTAL 0.4 mg/dL (0.2-1.0); TOTAL PROTEIN, SERUM 6.5 g/dL (6.4-8.2)
--- NOTE | 2019-03-10 22:46 | NUR ---
PT'S BP 108/68, PER VERBAL MD ORDER, WILL HOLD NITRO SL
[2019-03-10 23:34] VITALS: BP 115/66
--- NOTE | 2019-03-10 23:34 | NUR ---
Patient discharged to home in stable condition. Written and verbal after care instructions given. Patient verbalizes understanding of instruction.IV removed. Catheter intact and site benign. Pressure and 4x4 applied to site. No bleeding noted.Pt ambulatory with a steady gait
== END 2019-03-10 23:34 | disposition home or self-care (01) ==
LOC: ER 21:50
DX: R07.89 Other chest pain (principal); Z90.89 Acquired absence of other organs
CPT/HCPCS: 36415; 71045-TC; 80048-TC; 80076-TC; 83880; 84484-TC; 85025-TC

== ENCOUNTER 2021-10-20 10:19 | Emergency (ER) | payer MEDICAID ==
[~2021-10-20] VITALS: Ht 160 cm; Wt 79.4 kg
--- NOTE | 2021-10-20 10:35 | NUR ---
BIBS W/ C/O CHEST PRESSURE AND EPIGASTRIC BURNING/BLOATING X1-1/2 WEEKS. PT IS A/O X4, AMBULATORY. TO ER BED 1.
[2021-10-20] MEDS ORDERED: LIDOCAINE VISCOUS 2% UD 15 ML UDC ONE (10:50)
[2021-10-20] MEDS ORDERED: MAG HYDROX/AL HYDROX/SIMETH 30 ML UDC ONE (10:50)
--- NOTE | 2021-10-20 10:51 | NUR ---
DR CAGE AT BEDSIDE FOR EVAL
--- NOTE | 2021-10-20 11:00 | NUR ---
URINE SAMPLE COLLECTED AND SENT TO LAB
--- NOTE | 2021-10-20 11:05 | NUR ---
IV LINE ESTABLISHED ON RAC#20, BLOOD DRAWN AND SENT TO LAB.
[2021-10-20] MEDS: LIDOCAINE VISCOUS 2% UD 15 ML UDC MM ONE (11:07)
[2021-10-20] MEDS: MAG HYDROX/AL HYDROX/SIMETH 30 ML UDC PO ONE (11:07)
[2021-10-20 11:12] LABS: BASOPHILS % (AUTO) 0.4 % (0.0-2.0); EOSINOPHILS % (AUTO) 5.1 % (0.0-6.0); HEMATOCRIT 50 % (39-51); HEMOGLOBIN 16.9 g/dL (13.5-17.5); LYMPHOCYTES # (AUTO) 1.4 K/uL (0.8-4.8); MEAN CORPUSCULAR HGB CONC 34 g/dl (31.0-36.0); MEAN CORPUSCULAR VOLUME 95 fL (80-96); MONOCYTES # (AUTO) 0.4 K/uL (0.1-1.30); MONOCYTES % (AUTO) 7.9 % (2.0-12.0); NEUTROPHILS # (AUTO) 2.6 K/uL (1.8-8.9); NEUTROPHILS % (AUTO) 56.6 % (43.0-81.0); PLATELET COUNT (AUTO) 178 K/uL (150-450); RED BLOOD CELL COUNT(AUTO) 5.26 MIL/uL (4.5-6.0); WHITE BLOOD COUNT (AUTO) 4.6 K/uL (4.3-11.0)
--- NOTE | 2021-10-20 11:28 | NUR ---
COVID SWAB COLLECTED AND SENT TO LAB.
[2021-10-20 11:32] LABS: ALANINE AMINOTRANSFERASE 80 U/L (12-78); ALKALINE PHOSPHATASE 61 U/L (46-116); ASPARTATE AMINOTRANSFERASE 45 U/L (15-37); BILIRUBIN,DIRECT 0.2 mg/dL (0.0-0.2); BILIRUBIN,TOTAL 0.9 mg/dL (0.2-1.0); CALCIUM, SERUM 8.9 mg/dL (8.5-10.1); CARBON DIOXIDE 32 mmol/L (21-32); CHLORIDE 102 mmol/L (98-107); GLUCOSE 102 mg/dL (74-106); POTASSIUM 4.4 mmol/L (3.5-5.1); SODIUM SERUM 139 mmol/L (136-145); TOTAL PROTEIN, SERUM 7.9 g/dL (6.4-8.2); UREA NITROGEN, BLOOD 15 mg/dL (7-18)
[2021-10-20 11:37] LABS: BILIRUBIN,URINE NEGATIVE (NEGATIVE); COLOR,URINE YELLOW (YELLOW); LEUKOCYTE ESTERASE ,URINE NEGATIVE (NEGATIVE); NITRITE, URINE NEGATIVE (NEGATIVE); PROTEIN,URINE TRACE mg/dl (NEGATIVE); UGLUCOSE NEGATIVE (NEGATIVE); UROBILINOGEN,URINE 0.2 EU/dL (0.2)
[2021-10-20 12:02] LABS: BACTERIA,URINE None seen /HPF (None Seen); RBC,URINE 0-2 /HPF (0-2); SQUAMOUS EPITHELIAL CELL,UR Rare /HPF (None Seen); WBC,URINE 0-2 /HPF (0-3)
[2021-10-20 12:35] LABS: LIPASE 90 U/L (73-393)
[2021-10-20] MEDS ORDERED: FAMO-131 PO (14:02)
[2021-10-20] MEDS ORDERED: ALBU18HF2 INH (14:02)
[2021-10-20 14:12] VITALS: BP 133/74
--- NOTE | 2021-10-20 14:12 | NUR ---
IV removed. Catheter intact and site benign. Pressure and 4x4 applied to site. No bleeding noted.
--- NOTE | 2021-10-20 14:13 | NUR ---
Patient discharged to home in stable condition. Written and verbal after care instructions given. Patient verbalizes understanding of instruction.
== END 2021-10-20 14:13 | disposition home or self-care (01) ==
LOC: ER 10:23
DX: R05.9 Cough, unspecified (principal); R07.89 Other chest pain; R10.13 Epigastric pain; R94.31 Abnormal electrocardiogram [ECG] [EKG]; R74.01 Elevation of levels of liver transaminase levels; Z20.822 Contact with and (suspected) exposure to COVID-19
CPT/HCPCS: 99285; 71045; 87426; 93005 ×2; 85025; 80048; 83690; 80076; 81001; 36415; 84484 ×2; C9803

== ENCOUNTER 2023-08-20 16:11 | Emergency (ER) | payer MEDICAID ==
[~2023-08-20] VITALS: Ht 160 cm; Wt 79.4 kg
[~2023-08-20 16:11] MED LIST: ALBU18HF2 INH; FAMO-131 PO
[2023-08-20 16:56] VITALS: TEMP 98.6
[2023-08-20] MEDS ORDERED: MORPHINE SULFATE INJ 2 MG/ML DISP.SYRIN ONE (17:34)
[2023-08-20] MEDS: IV NS 0.9% 1,000 ML BAG IV ONE (17:35)
[2023-08-20] MEDS: MORPHINE SULFATE INJ 2 MG/ML DISP.SYRIN IV ONE (17:40)
[2023-08-20 17:44] LABS: BASOPHILS % (AUTO) 0.2 % (0.0-2.0); EOSINOPHILS # (AUTO) 0.1 K/uL (0.0-0.7); EOSINOPHILS % (AUTO) 0.5 % (0.0-6.0); HEMATOCRIT 50 % (39-51); HEMOGLOBIN 16.4 g/dL (13.5-17.5); LYMPHOCYTES % (AUTO) 7.8 % (20.0-44.0); MEAN CORPUSCULAR HEMOGLOBIN 32 PG (26.0-33.0); MEAN CORPUSCULAR HGB CONC 33 g/dl (31.0-36.0); MEAN CORPUSCULAR VOLUME 96 fL (80-96); MONOCYTES # (AUTO) 0.7 K/uL (0.1-1.30); MONOCYTES % (AUTO) 5.7 % (2.0-12.0); NEUTROPHILS # (AUTO) 10.7 K/uL (1.8-8.9); NEUTROPHILS % (AUTO) 85.8 % (43.0-81.0); PLATELET COUNT (AUTO) 336 K/uL (150-450); RED BLOOD CELL COUNT(AUTO) 5.18 MIL/uL (4.5-6.0); RED CELL DISTRIBUTION WIDTH 14.2 % (11.5-15.0); WHITE BLOOD COUNT (AUTO) 12.4 K/uL (4.3-11.0)
[2023-08-20 17:55] LABS: CALCIUM, SERUM 8.9 mg/dL (8.5-10.1); CARBON DIOXIDE 32 mmol/L (21-32); CHLORIDE 102 mmol/L (98-107); GLUCOSE 92 mg/dL (74-106); SODIUM SERUM 136 mmol/L (136-145); UREA NITROGEN, BLOOD 15 mg/dL (7-18)
[2023-08-20 18:01] LABS: ALANINE AMINOTRANSFERASE 61 U/L (12-78); ALBUMIN 3.2 g/dL (3.4-5.0); ALKALINE PHOSPHATASE 42 U/L (46-116); ASPARTATE AMINOTRANSFERASE 47 U/L (15-37); BILIRUBIN,DIRECT 0.2 mg/dL (0.0-0.2); BILIRUBIN,TOTAL 0.6 mg/dL (0.2-1.0); LIPASE 32 U/L (16-77); TOTAL PROTEIN, SERUM 7.2 g/dL (6.4-8.2)
[2023-08-20 20:04] LABS: APPEARANCE,URINE Clear (CLEAR); BILIRUBIN,URINE Negative (NEGATIVE); BLOOD, URINE Trace-lysed Ery/uL (NEGATIVE); COLOR,URINE YELLOW (YELLOW); KETONES,URINE >=160 mg/dL (NEGATIVE); LEUKOCYTE ESTERASE ,URINE Negative (NEGATIVE); NITRITE, URINE Negative (NEGATIVE); PH,URINE 5.5 (5.0-8.0); PROTEIN,URINE 30 mg/dl (NEGATIVE); UGLUCOSE Negative (NEGATIVE); UROBILINOGEN,URINE 0.2 EU/dL (0.2)
[2023-08-20 20:19] LABS: ADD URINE CULTURE NO; BACTERIA,URINE Few /HPF (None Seen); SQUAMOUS EPITHELIAL CELL,UR Few /HPF (None Seen); WBC,URINE 0-2 /HPF (0-3)
[2023-08-20] MEDS ORDERED: POLY119P2 PO (20:22)
[2023-08-20] MEDS ORDERED: DICY10SO PO (20:22)
[2023-08-20 20:44] VITALS: BP 135/80; O2SAT 99
== END 2023-08-20 20:43 | disposition home or self-care (01) ==
LOC: ER 16:19
DX: R10.30 Lower abdominal pain, unspecified (principal); R94.31 Abnormal electrocardiogram [ECG] [EKG]; J45.909 Unspecified asthma, uncomplicated; Z90.89 Acquired absence of other organs; Z60.2 Problems related to living alone
CPT/HCPCS: 99285; 74176; 96374; 71045; 96361; 93005 ×2; 85025; 80048; 83690; 80076; 81001; 36415; 84484 ×2; J7030; J2270

== ENCOUNTER 2024-02-12 15:02 | Emergency (ER) | payer BC, MEDICAID ==
[~2024-02-12] VITALS: Ht 154.9 cm; Wt 72.6 kg
[~2024-02-12 15:02] MED LIST changes: +DICY10SO PO; +POLY119P2 PO
[2024-02-12] MEDS ORDERED: KETOROLAC TROMETHAMINE INJ 30 MG/ML VIAL ONE (15:58)
[2024-02-12] MEDS ORDERED: ONDANSETRON HCL/PF 4 MG/2 ML VIAL ONE (16:02)
[2024-02-12] MEDS: IV NS 0.9% 1,000 ML BAG IV ONE (16:12)
[2024-02-12] MEDS: ONDANSETRON HCL/PF 4 MG/2 ML VIAL IV ONE (16:13)
[2024-02-12] MEDS: KETOROLAC TROMETHAMINE INJ 30 MG/ML VIAL IV ONE (16:14)
[2024-02-12 16:16] LABS: INR 1.07 (0.91-1.10); PARTIAL THROMBOPLASTIN TIME 23.1 SEC (24.3-34.3); PROTHROMBIN TIME 11.3 SECS (9.2-11.1)
[2024-02-12 16:17] LABS: ALBUMIN 3.2 g/dL (3.4-5.0); BILIRUBIN,DIRECT 0.1 mg/dL (0.0-0.2); BILIRUBIN,TOTAL 0.7 mg/dL (0.2-1.0); CALCIUM, SERUM 8.3 mg/dL (8.5-10.1); POTASSIUM 3.7 mmol/L (3.5-5.1); TOTAL PROTEIN, SERUM 6.6 g/dL (6.4-8.2)
[2024-02-12 16:41] LABS: BASOPHILS % (AUTO) 0.4 % (0.0-2.0); EOSINOPHILS # (AUTO) 0.2 K/uL (0.0-0.7); HEMATOCRIT 51 % (39-51); HEMOGLOBIN 17.2 g/dL (13.5-17.5); LYMPHOCYTES # (AUTO) 1.4 K/uL (0.8-4.8); LYMPHOCYTES % (AUTO) 23.8 % (20.0-44.0); MEAN CORPUSCULAR HEMOGLOBIN 32 PG (26.0-33.0); MEAN CORPUSCULAR HGB CONC 34 g/dl (31.0-36.0); MEAN CORPUSCULAR VOLUME 94 fL (80-96); MONOCYTES # (AUTO) 0.5 K/uL (0.1-1.30); MONOCYTES % (AUTO) 8.5 % (2.0-12.0); NEUTROPHILS # (AUTO) 3.9 K/uL (1.8-8.9); NEUTROPHILS % (AUTO) 64.3 % (43.0-81.0); PLATELET COUNT (AUTO) 235 K/uL (150-450); RED BLOOD CELL COUNT(AUTO) 5.36 MIL/uL (4.5-6.0); RED CELL DISTRIBUTION WIDTH 14.4 % (11.5-15.0); WHITE BLOOD COUNT (AUTO) 6.1 K/uL (4.3-11.0)
[2024-02-12 17:50] LABS: APPEARANCE,URINE CLEAR (CLEAR); BILIRUBIN,URINE NEGATIVE (NEGATIVE); BLOOD, URINE NEGATIVE Ery/uL (NEGATIVE); COLOR,URINE YELLOW (YELLOW); KETONES,URINE NEGATIVE (NEGATIVE); LEUKOCYTE ESTERASE ,URINE NEGATIVE (NEGATIVE); NITRITE, URINE NEGATIVE (NEGATIVE); PROTEIN,URINE 1+ mg/dl (NEGATIVE); UGLUCOSE NEGATIVE (NEGATIVE); UROBILINOGEN,URINE 0.2 EU/dL (0.2)
[2024-02-12 18:09] LABS: ADD URINE CULTURE NO; BACTERIA,URINE 1+ /HPF (None Seen); MUCUS,URINE Moderate /LPF (None Seen); SQUAMOUS EPITHELIAL CELL,UR None Seen /HPF (None Seen)
[2024-02-12 18:27] VITALS: BP 126/83; TEMP 97.9; O2SAT 99
== END 2024-02-12 18:30 | disposition home or self-care (01) ==
LOC: ER 15:07
DX: M54.59 Other low back pain (principal); R42 Dizziness and giddiness; R07.9 Chest pain, unspecified; J45.909 Unspecified asthma, uncomplicated; Z90.49 Acquired absence of other specified parts of digestive tract; Z60.2 Problems related to living alone
CPT/HCPCS: 99285; 96374; 71045; 96361; 96375; 93005; 85025; 80048; 80076; 81001; 36415; 85730; 82962; J1885; J2405; J7030